=== PATIENT | male | born 1950 | race Hispanic/Latino ===

== ENCOUNTER → 2018-09-21 | Outpatient (CLI) | payer OTHER ==
[~2018-09-21] MED LIST: ALPR0.5T PO; FAMO20TA32 PO; LOSA50TA64 PO; METF-444 PO; METO-391 PO
== END | disposition home or self-care (01) ==
LOC: RAH 13:51
PROVIDERS: ATTEND Internal Medicine Cardiovascular Disease
DX: Z13.6 Encounter for screening for cardiovascular disorders (principal)
CPT/HCPCS: 75571

== ENCOUNTER → 2018-09-27 | Outpatient (CLI) | payer OTHER | END | disposition home or self-care (01) | LOC: RAH 11:14 | PROVIDERS: ATTEND Urology | DX: N50.9 Disorder of male genital organs, unspecified (principal) | CPT/HCPCS: 76870 ==

== ENCOUNTER 2025-05-22 14:18 | Emergency (ER) | payer OTHER ==
[~2025-05-22] VITALS: Ht 180.3 cm; Wt 87.5 kg
[~2025-05-22 14:18] MED LIST changes: -ALPR0.5T PO; +DICL50TA9 PO; -FAMO20TA32 PO; -LOSA50TA64 PO; +META-117 PO; -METF-444 PO; +METF-446 PO; -METO-391 PO; +METO100T14 PO; +SEMA1PEN3 SQ; +SERT150C PO; +TAMS-55 PO
[2025-05-22] MEDS: ORPHENADRINE 60MG/2ML IM ONE (14:52)
--- NOTE | 2025-05-22 14:54 | NUR ---
PATIENT IS DECLINING C COLLAR. ADIVSED PATIENT ON RISKS. DENIES NECK DISCOMFORT. PT REMOVED C COLLAR PLACED BY EMS.
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
[2025-05-22] MEDS ORDERED: DICL20GE TP (15:26)
[2025-05-22] MEDS ORDERED: METH-662 PO (15:26)
[2025-05-22 15:53] VITALS: BP 127/79; PULSE 109; RESP 16; TEMP 98.1; O2SAT 96
--- NOTE | 2025-05-22 16:10 | HMCIMG ---
AP and lateral cervical spine images Clinical history: Neck pain Comparison: No prior Findings: There is slight loss of cervical lordosis. There is no acute fracture or dislocation. Vertebral body height is maintained. There are no erosive changes seen. The disc spaces narrowed at several levels with endplate osteophytes Impression: 1.. No acute fracture or dislocation. Moderate cervical spondylosis 2. There is mild loss of normal lordotic curvature within the cervical spine. This suggests an element of muscle spasm. Consider MRI evaluation if there is concern for underlying nerve impingement or cord compression. /[place]
== END 2025-05-22 15:55 | disposition home or self-care (01) ==
LOC: EDH 14:18
DX: S16.1XXA Strain of muscle, fascia and tendon at neck level, initial encounter (principal); Z79.84 Long term (current) use of oral hypoglycemic drugs; Z79.899 Other long term (current) drug therapy; V89.2XXA Person injured in unspecified motor-vehicle accident, traffic, initial encounter; Y93.89 Activity, other specified; Y92.89 Other specified places as the place of occurrence of the external cause; Y99.8 Other external cause status
CPT/HCPCS: 72040; 96372; 99283; J2360